=== PATIENT | male | born 2005 | race Hispanic/Latino ===

== ENCOUNTER 2023-04-02 19:43 | Emergency (ER) | payer MEDICAID ==
[~2023-04-02] VITALS: Ht 177.8 cm; Wt 99.8 kg
[2023-04-02 20:09] VITALS: BP 150/74
[2023-04-02 21:00] VITALS: TEMP 101.6
[2023-04-02] MEDS ORDERED: KETOROLAC 30MG VIAL (30MG/ML) IVP ONE (21:00)
[2023-04-02] MEDS ORDERED: PREDNISONE 20 MG TABLET PO ONE (21:00)
[2023-04-02] MEDS ORDERED: ACETAMINOPHEN 500 MG TABLET PO ONE (21:00)
[2023-04-02] MEDS ORDERED: LACTATED RINGERS 1000ML 1,000 ML IV ONE (21:00)
[2023-04-02 21:15] VITALS: PULSE 116; RESP 24
[2023-04-02 21:17] VITALS: PULSE 122; RESP 24
[2023-04-02] MEDS ORDERED: ALBUTEROL 0.083% 2.5 MG/3 ML INH IH ONE ×2 (21:30)
[2023-04-02] MEDS ORDERED: BENZ-39 PO (21:57)
[2023-04-02] MEDS ORDERED: ALBUHFA IH (21:57)
[2023-04-02 22:25] VITALS: PULSE 94; RESP 20; O2SAT 98
== END 2023-04-02 22:33 | disposition home or self-care (01) ==
LOC: EDH 19:43
DX: J20.9 Acute bronchitis, unspecified (principal); J03.90 Acute tonsillitis, unspecified; R07.89 Other chest pain; Z79.52 Long term (current) use of systemic steroids; Z90.49 Acquired absence of other specified parts of digestive tract
CPT/HCPCS: 99283; 96374; 96361; 94640; J7120; J1885